=== PATIENT | female | born 1945 | race Caucasian/White ===

== ENCOUNTER 2024-10-16 09:07 | Outpatient (CLI) | payer MEDICARE | END 2024-10-16 09:08 | disposition home or self-care (01) | LOC: CSHSLEEP 09:07 | PROVIDERS: ATTEND Family Medicine | DX: G47.33 Obstructive sleep apnea (adult) (pediatric) (principal); R06.83 Snoring; I10 Essential (primary) hypertension | CPT/HCPCS: 95810 ==